=== PATIENT | male | born 1940 | race Caucasian/White ===

== ENCOUNTER 2019-04-04 08:44 | Emergency (ER) | payer OTHER, MEDICAID ==
[~2019-04-04] VITALS: Ht 170.2 cm; Wt 82.6 kg
[2019-04-04 08:48] VITALS: Ht 170.2 cm; Wt 82.6 kg
[2019-04-04 09:40] LABS: PLATELET COUNT 450 x10^3mcL (130-400); RED CELL DISTRIBUTION WIDTH 13.5 % (11.5-14.5)
[2019-04-04 09:41] LABS: BASOPHIL % 0.2 % (0-2)
[2019-04-04 09:49] LABS: CALCIUM 9.8 mg/dL (8.5-10.1); CARBON DIOXIDE 23.7 mmol/L (21-32); CHLORIDE SERUM 103 mmol/L (98-107); GLUCOSE SERUM 118 mg/dL (74-106); POTASSIUM SERUM 4.5 mmol/L (3.5-5.1); SODIUM SERUM 137 mmol/L (136-145)
[2019-04-04 09:53] LABS: ALKALINE PHOSPHATASE 53 U/L (46-116); ALT/SGPT 21 U/L (16-63); AST/SGOT 19 U/L (15-37); BILIRUBIN TOTAL 0.41 mg/dL (0.20-1.00); TOTAL PROTEIN, SERUM 7.4 g/dL (6.4-8.2)
[2019-04-04 10:09] LABS: ALBUMIN 2.8 g/dL (3.4-5.0)
[2019-04-04 10:39] VITALS: BP 136/75
== END 2019-04-04 10:53 | disposition home or self-care (01) ==
LOC: ED 08:44
PROVIDERS: Emergency Medicine
DX: J18.9 Pneumonia, unspecified organism (principal); I10 Essential (primary) hypertension; Z86.73 Personal history of transient ischemic attack (TIA), and cerebral infarction without residual deficits
CPT/HCPCS: 36415; J0696; Q0092